=== PATIENT | male | born 1990 | race African-American/Black ===

== ENCOUNTER 2018-08-19 10:43 | Emergency (ER) | payer OTHER ==
[~2018-08-19] VITALS: Ht 170.2 cm; Wt 95.5 kg
[2018-08-19 11:05] VITALS: Ht 170.2 cm; Wt 95.5 kg
[2018-08-19] MEDS ORDERED: SOD CHLORIDE 0.9% 1,000 ML IV STA (11:08)
[2018-08-19] MEDS ORDERED: KETOROLAC 30 MG INJ IV STA (11:08)
[2018-08-19] MEDS ORDERED: biktarvy PO (11:44)
[2018-08-19] MEDS ORDERED: IBUP-1542 PO (12:52)
--- NOTE | 2018-08-19 12:54 | ERD ---
ER Documentation Chief Complaint Chief Complaint WALK IN. FLU LIKE SYMPTOMS 1 WEEK. CHEST PAIN. COUGH. HPI Patient is a 28-year-old male who presents with chest pain. He has had sore throat, nausea, and dizziness as well. He is being treated for the flu although he did not have documentation with flu swab. He is currently taking Tamiflu. He has been seen by another emergency department but wanted to come in and get a second opinion. He does have sharp chest pain that is worse with inspiration. ROS All systems reviewed and are negative except as per history of present illness. Medications Home Meds Active Scripts Ibuprofen* (Motrin*) 600 Mg Tab, 600 MG PO Q6H PRN for PAIN AND OR ELEVATED TEMP, #30 TAB Prov:DANA ROYAL MD 08/19/18 Reported Medications [biktarvy] No Conflict Check, 1 TAB PO DAILY 08/19/18 Allergies Allergies: Coded Allergies: No Known Allergy (Unverified , 08/19/18) PMhx/Soc Positive for HIV FmHx Family History: diabetes Physical Exam Vitals Vital Signs Date Temp Pulse Resp B/P (MAP) Pulse Ox O2 O2 Flow FiO2 Time Delivery Rate 08/19/18 98.7 75 18 138/94 100 11:05 (109) 08/19/18 97.5 120 18 155/89 100 10:47 (111) Physical Exam Const: No acute distress Head: Atraumatic Eyes: Normal Conjunctiva ENT: Normal External Ears, Nose and Mouth. Neck: Full range of motion. No meningismus. Resp: Clear to auscultation bilaterally Cardio: Regular rate and rhythm, no murmurs Abd: Soft, non tender, non distended. Normal bowel sounds Skin: No petechiae or rashes Back: No midline or flank tenderness Ext: No cyanosis, or edema Neur: Awake and alert Psych: Normal Mood and Affect Result Diagram: 08/19/18 1134 08/19/18 1134 Results 24 hrs Laboratory Tests Test 08/19/18 11:34 White Blood Count 3.8 10^3/ul Red Blood Count 4.62 10^6/ul Hemoglobin 14.4 g/dl Hematocrit 43.5 % Mean Corpuscular Volume 94.2 fl Mean Corpuscular Hemoglobin 31.2 pg Mean Corpuscular Hemoglobin Concent 33.1 g/dl Red Cell Distribution Width 11.1 % Platelet Count 245 10^3/UL Mean Platelet Volume 9.6 fl Immature Granulocytes % 0.000 % Neutrophils % 26.2 % Lymphocytes % 49.1 % Monocytes % 23.4 % Eosinophils % 1.0 % Basophils % 0.3 % Nucleated Red Blood Cells % 0.0 /100WBC Immature Granulocytes # 0.000 10^3/ul Neutrophils # 1.0 10^3/ul Lymphocytes # 1.9 10^3/ul Monocytes # 0.9 10^3/ul Eosinophils # 0.0 10^3/ul Basophils # 0.0 10^3/ul Nucleated Red Blood Cells # 0.0 10^3/ul D-Dimer 371.87 ng/ml D-Dimer Comment Sodium Level 144 mmol/L Potassium Level 3.9 mmol/L Chloride Level 100 mmol/L Carbon Dioxide Level 27 mmol/L Anion Gap 17 Blood Urea Nitrogen 19 mg/dl Creatinine 1.29 mg/dl Est Glomerular Filtrat Rate mL/min > 60 mL/min Glucose Level 95 mg/dl Calcium Level 9.7 mg/dl Troponin I < 0.012 ng/ml Current Medications Medications Dose Sig/Dominic Start Time Status Last (Trade) Ordered Route PRN Stop Time Admin Dose Reason Admin Sodium 1,000 ml @ Q1H STAT 08/19/18 DC 08/19/18 Chloride 1,000 mls/hr IV 11:08 08/19/18 11:25 12:07 Ketorolac 30 mg ONCE STAT 08/19/18 DC 08/19/18 Tromethamine IV 11:08 08/19/18 11:24 (Toradol) 11:09 Procedures/MDM EKG #1 read by me: Rate/Rhythm: Regular rate and rhythm at a rate of 100 Intervals: Normal Impression: Flipped T waves diffusely EKG #2 read by me: Rate/Rhythm: Regular rate and rhythm at a rate of 87 Intervals: Normal Impression: Flipped T waves diffusely Chest x-ray negative per radiology. Smoking Cessation Therapy: Pt. was lectured for greater than 3 minutes on the health risks of continued smoking and the benefits of cessation. Patient is a 28-year-old male who presents with chest pain. Laboratory studies were negative including a negative troponin and d-dimer. EKG show flipped T waves diffusely. Chest x-ray shows no pneumonia or pneumothorax. At this point I doubt acute coronary syndrome, pneumonia, pneumothorax, pulmonary embolism, or aortic dissection. I do believe that outpatient management is appropriate but the patient will need close follow-up with his primary doctor within 24-48 hours. He can return sooner for any worsening symptoms. Departure Diagnosis: Primary Impression: Chest pain Chest pain type: unspecified Qualified Codes: R07.9 - Chest pain, unspecified Condition: Fair Patient Instructions: Chest Pain, Uncertain Cause Referrals: Dr. Perera Additional Instructions: Call your primary care doctor TOMORROW for an appointment during the next 1-2 days.See the doctor sooner or return here if your condition worsens before your appointment time. DANA ROYAL MD Aug 19, 2018 12:54
[2018-08-19 13:00] VITALS: BP 139/89; PULSE 109; RESP 18
== END 2018-08-19 13:02 | disposition home or self-care (01) ==
LOC: E/R 10:43
DX: R07.9 Chest pain, unspecified (principal)
CPT/HCPCS: 36415; 71045; 80048; 84484; 85025; 85378; 93005; 96374; J1885; J7030; Z7502

== ENCOUNTER 2019-04-23 13:01 | Emergency (ER) | payer OTHER ==
[~2019-04-23] VITALS: Wt 90.0 kg
[~2019-04-23 13:01] MED LIST: GLYC1SUP92 PR; IBUP-1542 PO; SENN-120 PO; biktarvy PO
[2019-04-23 13:13] VITALS: BP 116/70; PULSE 60; RESP 18
[2019-04-23] MEDS ORDERED: DOCUSATE SODIUM 250 MG CAP PO ONE (15:00)
[2019-04-23] MEDS ORDERED: GLYCERIN (ADULT) SUPP PR ONE (15:00)
== END 2019-04-23 16:20 | disposition home or self-care (01) ==
LOC: FTE 13:01
DX: K59.01 Slow transit constipation (principal); Z21 Asymptomatic human immunodeficiency virus [HIV] infection status; Z87.891 Personal history of nicotine dependence
CPT/HCPCS: Z7502; Z7610; 99282